=== PATIENT | male | born 1960 | race Caucasian/White ===

== ENCOUNTER 2017-09-04 10:20 | Day surgery (SDC) | payer OTHER ==
[~2017-09-04] VITALS: Ht 193 cm; Wt 90.7 kg
[~2017-09-04 10:20] MED LIST: ALEVE220 MG PO; HYDROCODONE-APA1 TAB PO
[2017-09-04 12:23] VITALS: Ht 193 cm; Wt 90.7 kg
--- NOTE | 2017-09-04 20:35 | NUR ---
2000 REPORT FROM TASHA NOGUERA. PATIENT RESTING BUT AWAKE. TRIED TO VOID BUT UNABLE TO. RESP EVEN AND NONLABORED.
--- NOTE | 2017-09-04 21:03 | NUR ---
2100 ASSISTED PATIENT UP AND WALKED SOME UNABLE TO VOID.
--- NOTE | 2017-09-04 21:09 | NUR ---
[address] ROBERTS STATES NEEDS A CATHETER AND REFUSING.
--- NOTE | 2017-09-04 21:38 | NUR ---
5717 PATIENT UP AND IN BATHROOM TRYING TO VOID UNABLE TO DO SO. STILL REFUSING CATHETER . PAGED DR. ROBERTS [phone] AND [phone] TO LET HIM KNOW. PATIENT WANTING TO GO HOME NOT DISTENDED OR FULL.
--- NOTE | 2017-09-04 21:46 | NUR ---
2148 DISCHARGE INSTRUCTIONS GIVEN. STILL UNABLE TO VOID. TOLD TO CALL OFFICE TOMORROW FOR 2 TO 3 WEEK FOLLOW APOINTMENT. PATIENT INSISTENT ON GOING HOME. TOLD PATIENT IF UNABLE TO URINATE TO GO TO THE ER. VERBALLY UNDERSTANDS. IV DCD CATHETER INTACT. STILL NO CALL BACK FROM DR. ROBERTS SO PATIENT DISCHARGED TO HOME.
--- NOTE | 2017-09-04 21:50 | NUR ---
2150 TO HOME VIA W/C AND TOLD IF DOES NOT URINATE TO GO TO THE ER.
--- NOTE | 2017-10-03 13:26 | OP ---
PATIENT NAME: JEFFERSON FOOTE MEDICAL RECORD: [id number] :64 LOCATION:D.OPS ADMISSION DATE: SURGEON: DEEP ROBERTS MD DATE OF OPERATION: 09/04/2017 PREOPERATIVE DIAGNOSES: 1. Hematochezia. 2. Intractably symptomatic hemorrhoids. 3. Anal prolapse with circumferential third-degree internal hemorrhoids. POSTOPERATIVE DIAGNOSES: 1. Hematochezia. 2. Intractably symptomatic hemorrhoids. 3. Anal prolapse with circumferential third-degree internal hemorrhoids. 4. One rectal polyp. PROCEDURES: 1. Total colonoscopy to cecum. 2. Hot biopsy forceps polypectomy times 1. 3. Procedure for prolapse and hemorrhoids. SURGEON: Deep Roberts MD CLINICAL APPLICATION SPECIALIST: None. BLOOD LOSS: Minimal. ANESTHESIA: General. COMPLICATIONS: None. INDICATION: The risks, possible complications, and alternatives to the procedure were explained to the patient. He elects to proceed. Discussion specifically included but was not limited to bleeding requiring emergency reoperation, infection, intestinal injury as well as recurrent hemorrhoidal symptoms. OPERATIVE COURSE: The patient was conveyed to the operating room electively on 09/04/2017. General anesthesia was induced by the anesthesia staff. The patient was placed in the Decker position. A digital rectal examination was performed. A colonoscope was inserted through the anus. It was easily advanced to the cecum. The prep was adequate. I slowly withdrew the endoscope. I irrigated and aspirated extensively. I dragged the folds. There was an 8-mm polyp that was noted and it was a sessile polyp, which appeared adenomatous. It was removed utilizing the hot biopsy forceps polypectomy technique. A retroflexed view was obtained in the rectum. I then unretroflexed the scope and removed it under direct vision. The patient was then placed in the lithotomy position. The buttocks were taped laterally. The anus and perianal areas were sterilely prepped and draped. I dilated the anus laterally to 3 fingers. A PPH dilator retractor was placed and the retractor was sutured to the surrounding anoderm with 2-0 silks. A mucosal pursestring suture of 2-0 Prolene was applied 1 cm cephalad to the OPERATIVE REPORT [id number] JEFFERSON FOOTE clear retractor. The PPH stapling device was inserted with the anvil cephalad to the pursestring suture, which was tightened and tied. The stapling device was engaged. It was held in place for 1 minute and then fired. It was removed under direct vision. There was a circumferential donut of hemorrhoidal as well as lower rectal mucosal tissue within the PPH stapling device. Bleeding along the mucosal anastomotic staple line was controlled with [id number] 3-0 Vicryls. A combination of Marcaine and steroid preparation were used to infiltrate the perianal tissues. Gelfoam was applied within the anus and rectum. A topical anesthetic was applied to the external hemorrhoids. The patient was then extubated and conveyed to post-anesthesia care unit where he was in stable condition. He will be dismissed home on hydrocodone as well as Valium and Colace. I will see him in the office in 2-3 weeks. TRANSINT:[id number] Voice Confirmation ID: [id number] DOCUMENT ID: [id number] DEEP ROBERTS MD at 1326 CC: NOAM VOSS MD [id number] DICTATION DATE: 09/04/171825 MACHINE FEED OPERATOR: 09/04/171909 [facility] 09/04/17 [facility] [address] [place] [address]
--- NOTE | 2017-10-03 13:26 | HP ---
PATIENT: JEFFERSON FOOTE MEDICAL RECORD: [id number] ACCOUNT: [id number] LOCATION:[facility] : 64 ADMISSION DATE: 09/04/17 HISTORY AND PHYSICAL EXAMINATION There is a history and physical on the chart. His history and physical is unchanged from his visit to the office. The patient has been having hematochezia. For that reason, he is undergoing colonoscopy. Additionally, he has intractably symptomatic hemorrhoids. I am going to plan for a colonoscopy as well as a procedure for prolapsing hemorrhoids. The risks, possible complications, and alternatives of the procedure were explained to the patient. He elects to proceed. TRANSINT:[id number] Voice Confirmation ID: [id number] DOCUMENT ID: [id number] ERNESTINE ROBERTS MD at 1326 CC: NOAM VOSS MD [id number] DICTATION DATE: 09/04/171821 SAMPLE WORKER: 09/04/17 [address] [facility] 09/04/17 [address] [id number] [place] [address]
== END 2017-09-04 21:50 | disposition home or self-care (01) ==
LOC: D.OPS 10:20 → D.PAN 11:00 → D.OPS 11:15 → D.PAN 13:00 → D.OPS 21:50
DX: K64.2 Third degree hemorrhoids (principal); K62.2 Anal prolapse; K62.1 Rectal polyp; Z01.812 Encounter for preprocedural laboratory examination